=== PATIENT | female | born 1990 | race African-American/Black ===

== ENCOUNTER 2017-04-18 19:00 | Emergency (ER) | payer SELFPAY ==
[2017-04-18 19:16] VITALS: RESP 16
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
[2017-04-18 19:45] LABS: % IMMATURE GRANULYOCYTES 0.3 % (0.0-1.1); ABSOLUTE IMMATURE GRANULOCYTES 0.02 10^3/uL (0.00-0.10); ADD DIFF? NO; ADD MORPH? NO; ADD SCAN? NO; ATYPICAL LYMPHOCYTE FLAG 0 (0-99); FRAGMENT RBC FLAG 0 (0-99); HEMATOCRIT 41.7 % (38.0-47.0); HEMOGLOBIN 14.4 g/dL (12.6-16.3); LEFT SHIFT FLG 0 (0-99); LIPEMIA HEMOLYSIS FLAG 90 (0-99); MEAN CELL HEMOGLOBIN 29.7 pg (27.9-34.1); MEAN CELL HEMOGLOBIN CONCENTR. 34.5 g/dL (32.4-36.7); MEAN PLATELET VOLUME 9.4 fL (8.7-11.7); PLATELET CLUMPS FLAG 0 (0-99); PLATELET COUNT 384 10^3/uL (150-400); RED BLOOD CELL COUNT 4.85 10^6/uL (4.18-5.33); RED CELL DISTRIBUTION WIDTH 13.2 % (11.5-15.2)
[2017-04-18 19:47] LABS: ALANINE AMINOTRANSFERASE 26 IU/L (9-52); ALBUMIN 4.9 g/dL (3.5-5.0); ALKALINE PHOSPHATASE 80 IU/L (38-126); ANION GAP 15 mEq/L (8-16); ASPARTATE AMINOTRANSFERASE 36 IU/L (14-46); BILIRUBIN-CONJUGATED 0.4 mg/dL (0.0-0.5); BILIRUBIN-UNCONJUGATED 0.6 mg/dL (0.0-1.1); CALCIUM 9.9 mg/dL (8.5-10.4); CARBON DIOXIDE 24 mEq/l (22-31); CHLORIDE 102 mEq/L (97-110); CREATININE 0.9 mg/dL (0.6-1.0); GLOMERULAR FILTRATION RATE > 60; GLUCOSE 83 mg/dL (70-100); POTASSIUM 4.4 mEq/L (3.5-5.2); SALICYLATE < 1.0 mg/dL (2.0-20.0); SODIUM 141 mEq/L (134-144); TOTAL PROTEIN 8.4 g/dL (6.3-8.2)
[2017-04-18 20:18] LABS: ETHANOL SERUM 329 mg/dL (0-10)
--- NOTE | 2017-04-19 00:15 | CPEKG ---
Heart Rate: 74 RR Interval: 811 P-R Interval: 140 QRSD Interval: 70 QT Interval: 392 QTC Interval: 435 P [place]: 62 QRS [place]: 28 T Wave [place]: 49 EKG Severity - NORMAL ECG - EKG Impression: SINUS RHYTHM Electronically Signed By: Ruth Dong 24-Apr-2017 13:54:18
[2017-04-19 11:37] VITALS: BP 119/68; PULSE 16; TEMP 98.2; O2SAT 96
== END 2017-04-19 11:35 | disposition home or self-care (01) ==
LOC: EDUNIT#
DX: T39.312A Poisoning by propionic acid derivatives, intentional self-harm, initial encounter (principal); F32.9 Major depressive disorder, single episode, unspecified; F10.120 Alcohol abuse with intoxication, uncomplicated; F17.200 Nicotine dependence, unspecified, uncomplicated
CPT/HCPCS: 80305; G0480

== ENCOUNTER 2018-07-28 00:54 | Emergency (ER) | payer MEDICAID, OTHER ==
[2018-07-28] MEDS ORDERED: ONDANSETRON DISINTEGRATING 4 MG TAB ONE (02:32)
[2018-07-28] MEDS ORDERED: ONDANSETRON DISINTEGRATING 4 MG TAB PO ONE (02:34)
[2018-07-28 02:42] LABS: PLATELET COUNT 261 10^3/uL (150-400)
[2018-07-28] MEDS ORDERED: traZODone 50 MG TAB PO ONE (03:55)
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
[2018-07-28 07:42] VITALS: BP 138/93
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
--- NOTE | 2018-07-28 07:43 | ASMTTCLDSP ---
TLC Discharge Disposition Disposition: Answers: Discharge If Answers: Yes DISCHARGED: Patient/family given suicide hotline info & SAMHSA brochure? Disposition Notes: Notes: Pt stated commitment or ability to keep self safe, denied thoughts of self harm or harm to others. Pt expressed a desire to f/u with her [facility] psychiatrist appointment tomorrow at 0830 and her therapist appointment at 1645 tomorrow. Pt was given local hotline information and SAMHSA brochure After an Attempt. Discharge Concerns/Recommendations: Notes: In consultation with [facility] ED physician, Marysol Badillo MD, and [facility] on-call psychiatrist, Dr. Jose MD, both concurred that pt does not appear to meet 27-65 criteria requiring psychiatric hospitalization as pt does not appear to be an imminent risk of harm to self/others/gravely disabled due to a mental illness condition. provided verbal order read back vacating M1 hold at 0725 hrs. Was patient given the Answers: Not applicable Inpatient Behavioral Health Prohibited Belongings List while in the ED? Psychiatrist vacating M1 Marysol Badillo MD Hold: Date and time M1 hold 07/28/2018 07:25 AM vacated (time format is hh:mm): Type of Hold: Answers: M1/72-hour Hold Hold initiated by: Answers: Police Date Signed: 07/28/2018 07:43 AM Electronically Signed By:Jamin Malloy
== END 2018-07-28 07:39 | disposition home or self-care (01) ==
PROC: GZ11ZZZ Psychological Tests, Personality and Behavioral (ICD-10-PCS; principal; 2018-07-28)
DX: F10.929 Alcohol use, unspecified with intoxication, unspecified (principal); F43.21 Adjustment disorder with depressed mood; R45.851 Suicidal ideations; F17.200 Nicotine dependence, unspecified, uncomplicated
CPT/HCPCS: 80307; G0480

== ENCOUNTER 2018-12-04 13:46 | Emergency (ER) | payer MEDICAID, OTHER ==
--- NOTE | 2018-12-04 14:39 | EDPHY ---
PA Addendum - Addendum .: This note was started in error.
--- NOTE | 2018-12-04 14:46 | EDPHY ---
H & P Time Seen by Provider: 12/04/18 14:35 HPI/ROS: HPI Suture removal. 28-year-old female by private vehicle. This patient has a history of mental health illness. She was seen at [facility] on November 21 after she cut both of her distal ventral wrists in a suicide attempt. She had sutures placed at this time. She was treated as an inpatient and then discharged. She presents to our emergency department asking to have her sutures removed. She states that she is not suicidal. She denies being depressed. ROS: Constitutional: No fever, no chills. No weakness. Musculoskeletal: No extremity pain. Skin: No rashes. Neurological: No focal weakness or altered sensation. Past medical history: Bipolar, borderline personality disorder, suicidal ideation with prior suicide attempt. Primary care is through [facility]. Social history: Nonsmoker. Here by herself. No alcohol. Physical Exam: General Appearance: Alert, no distress. This patient is responding to questions appropriately and in full sentences. This patient appears well- hydrated and well-nourished. Eyes: Pupils equal and round no pallor or injection. No lid edema, erythema or injection. Upper extremity exam: Significant for 2 clean linear lacerations ventral distal wrists measuring approximately 3 in a 0.5 cm. Well sutured. No evidence of dehiscence or evidence of infection. Her right upper extremities are neurovascularly intact. Neurological: Motor sensory function is grossly intact. Cranial nerves are normal. Gait is normal. Skin: Warm and dry, no rashes. As above. Extremities are symmetrical. All joints range without pain or impingement. Psychiatric: No agitation. No depression. Database: EKG: Imaging: Procedures: Emergency department course: Several the sutures removed from the left wrist. There was some mild dehiscence. Steri-Strips were placed. This was then bandaged appropriately. I advised the patient that she leave the sutures in her right wrist for another 5 days. She feels comfortable being discharged. Follow-up and return to emergency department precautions reviewed with her. All of her questions were answered. She was discharged from the emergency department in good condition. Differential Diagnosis: The differential diagnosis on this patient includes but is not limited to suture removal. Suicidal ideation, major depression, wound infection, significant neurovascular injury unlikely. This represents a partial list of diagnoses considered. These considerations are based on history, physical exam , past history, reassessment and diagnostic testing. Smoking Status: Current every day smoker Constitutional: Initial Vital Signs Temperature (C) 37 C 12/04/18 13:55 Heart Rate 100 12/04/18 13:55 Respiratory Rate 16 12/04/18 13:55 Blood Pressure 123/84 H 12/04/18 13:55 O2 Sat (%) 94 12/04/18 13:55 O2 Delivery Mode Room Air Allergies/Adverse Reactions: No Known Allergies Allergy (Verified 12/04/18 13:59) Home Medications: Medication Instructions Recorded LaMICtal 07/28/18 Prozac 20 MG (*) 07/28/18 Seroquel 07/28/18 traZODone 07/28/18 Campral 333 MG (*) 12/04/18 Departure - Departure Disposition: Home, Routine, Self-Care Clinical Impression: Visit for suture removal Condition: Good Instructions: Care For Your Stitches (DC), Stitches Removal (ED) Additional Instructions: Read and follow provided instructions. Follow-up at [facility] in 5 days or with your primary care physician at [facility] to have your remaining stature is removed. Return to the emergency department for any serious concerns. Referrals: NONE *PRIMARY CARE P,. [Primary Care Provider] - As per Instructions
[2018-12-04 15:03] VITALS: BP 124/78
== END 2018-12-04 14:53 | disposition home or self-care (01) ==
LOC: CED 13:46
DX: Z48.02 Encounter for removal of sutures (principal)
CPT/HCPCS: 99282-ER